=== PATIENT | male | born 1975 | race Two or more races ===

== ENCOUNTER → 2024-08-17 | Outpatient (BNVA) | payer MEDICAID, SELFPAY | END | disposition home or self-care (01) | PROVIDERS: PCP Nurse Practitioner Family; Referring Provider Nurse Practitioner Family; Visit Provider Nurse Practitioner Family | DX: Z00.01 Encounter for general adult medical examination with abnormal findings (principal); Z01.812 Encounter for preprocedural laboratory examination; E11.9 Type 2 diabetes mellitus without complications; G89.29 Other chronic pain; M54.16 Radiculopathy, lumbar region; E78.2 Mixed hyperlipidemia; E66.9 Obesity, unspecified; Z68.30 Body mass index [BMI] 30.0-30.9, adult; Z01.810 Encounter for preprocedural cardiovascular examination; Z71.2 Person consulting for explanation of examination or test findings | CPT/HCPCS: 99215 ==

== ENCOUNTER → 2024-09-09 | Outpatient (BNVA) | payer MEDICAID, SELFPAY | END | disposition home or self-care (01) | PROVIDERS: PCP Nurse Practitioner Family; Referring Provider Nurse Practitioner Family; Visit Provider Nurse Practitioner Family | DX: K58.9 Irritable bowel syndrome, unspecified (principal) | CPT/HCPCS: 99214 ==

== ENCOUNTER → 2024-09-17 | Outpatient (BNVA) | payer MEDICAID, SELFPAY | END | disposition home or self-care (01) | PROVIDERS: PCP Nurse Practitioner Family; Referring Provider Nurse Practitioner Family; Visit Provider Nurse Practitioner Family | DX: K58.9 Irritable bowel syndrome, unspecified (principal); Z71.2 Person consulting for explanation of examination or test findings | CPT/HCPCS: 99214 ==

== ENCOUNTER → 2024-10-19 | Outpatient (BNVA) | payer MEDICAID, SELFPAY | END | disposition home or self-care (01) | PROVIDERS: PCP Nurse Practitioner Family; Referring Provider Nurse Practitioner Family; Visit Provider Nurse Practitioner Family | DX: J32.4 Chronic pansinusitis (principal) | CPT/HCPCS: 99215 ==

== ENCOUNTER 2024-10-22 04:18 | Emergency (ER) | payer MEDICAID, SELFPAY ==
[2024-10-22 04:18] VITALS: BMI 28.5
[2024-10-22 04:28] VITALS: BP 145/93; PULSE 94; RESP 18; TEMP 37.1; O2SAT 99
--- NOTE | 2024-10-22 05:31 | PD.EDABDPN ---
ED Abdominal Pain RME/HPI General Chief Complaint: Abdominal Pain Stated complaint: RUQ PAIN X 1 MON Time seen by provider: 10/22/24 04:49 Arrival date/time: 10/22/24 04:18 48M with history of HTN and psych presents to ED with 1 month of RUQ pain. Patient is tired of waiting for outpatient referral and ordered US and wanted to check in because his was here as well. Limitations: no limitations Related Data Previous Rx's ?Medication ?Instructions ?Recorded lidocaine 5 % topical patch See Rx Instructions topical 05/06/24 .COMPLEX #30 ea ergocalciferol (vitamin D2) 1,250 50,000 unit PO QWEEK 12 weeks #12 08/17/24 mcg (50,000 unit) capsule caps lisinopril 5 mg tablet 5 mg PO QDAY #90 tabs 08/17/24 sertraline 50 mg tablet 50 mg PO QDAY #90 tabs 08/17/24 Allergies Allergy/AdvReac Type Severity Reaction Status Date / Time egg Allergy Mild Diarrhea Verified 10/22/24 04:20 piperacillin (From Zosyn) Allergy Mild Redness of Verified 10/22/24 04:20 Skin tazobactam (From Zosyn) Allergy Mild Redness of Verified 10/22/24 04:20 Skin Review of Systems Review of Systems Systems Reviewed: All systems reviewed, normal except as documented Constitutional Constitutional: Reports system reviewed and no additional complaints, except as documented, Denies fever(s) and Denies headache(s) ENT Ears, Nose, Mouth, and Throat: Denies disequilibrium and Denies headache(s) Cardiovascular Cardiovascular: Reports system reviewed and no additional complaints, except as documented, Denies chest pain and Denies dyspnea Respiratory Respiratory: Reports system reviewed and no additional complaints, except as documented, Denies cough and Denies dyspnea Gastrointestinal Gastrointestinal: Reports system reviewed and no additional complaints, except as documented, Reports as per HPI, Reports abdominal pain, Denies nausea and Denies vomiting Neurologic Neurologic: Reports system reviewed and no additional complaints, except as documented, Denies confusion, Denies disequilibrium and Denies headache(s) Psychiatric Psychiatric: Denies confusion Past Medical History Past Medical History NEUROLOGIC: Negative Neurological Disorders or Seizures CARDIAC: Positive Cardiac Disorders, Hypercholesterolemia and Hypertension; Negative Congestive Heart Failure RESPIRATORY: Negative Chronic Obstructive Pulmonary Disease (COPD) GASTROINTESTINAL: Negative Gastrointestinal Disorders GENITOURINARY: Negative Genitourinary Disorders or Renal Disease REPRODUCTIVE: Negative Breast Cancer MUSCULOSKELETAL: Negative Musculoskeletal Disorders ENDOCRINE: Negative Endocrine Disorders, Diabetes Mellitus Type 1 or Diabetes Mellitus Type 2 HEMATOLOGIC: Negative Blood Disorders PSYCHO/SOCIAL: Positive Depression OTHER HISTORY: Negative Autoimmune Disease, MRSA, Clostridium Difficile or Breast Cancer Family History FAMILY HISTORY: Negative Family Cardiac Disorders Surgical History SURGICAL: Negative Cardiac Surgery, Endocrine Surgery, Ear Surgery, Abdominal Surgery, Nephrectomy, Joint Replacement, Neurologic Surgery or Mastectomy Social History SMOKING STATUS: Never smoker SECOND HAND EXPOSURE: No ED Exam General Limitations: Present no limitations General appearance: Present alert and in no apparent distress Head Head exam: Present atraumatic Eye Eye exam: Present normal appearance, PERRL and EOMI ENT ENT exam: Present normal exam, normal oropharynx and mucous membranes moist Neck Neck exam: Present normal inspection, full ROM and trachea midline Chest Chest inspection: Present normal inspection and symmetric chest wall rise Respiratory Respiratory exam: Present normal lung sounds bilaterally Cardiovascular Cardiovascular exam: Present regular rate, normal rhythm and normal heart sounds Abdominal Exam Abdominal exam: Present soft and normal bowel sounds Extremities Exam Extremities exam: Present normal inspection and full ROM Back Exam Back exam: Present normal inspection and full ROM Neurological Exam Neurological exam: Present alert, oriented X3 and CN II-XII intact Psychiatric Psychiatric exam: Present normal affect and normal mood Skin Skin exam: Present warm, dry, intact and normal color Course Quality Measures none Vital Signs Vital signs: Vital Signs Temperature 98.8 F 10/22/24 04:28 Pulse Rate 94 10/22/24 04:28 Respiratory Rate 18 10/22/24 04:28 Blood Pressure 145/93 H 10/22/24 04:28 Pulse Oximetry (%) 99 10/22/24 04:28 Oxygen Delivery Method Room Air 10/22/24 04:28 O2 at 99% on RA and WNLs Abdominal Pain MDM MDM Narrative MDM Narrative:: 48M with history of HTN and psych presents to ED with 1 month of RUQ pain. Patient is tired of waiting for outpatient referral and ordered US and wanted to check in because his was here as well. Physical exam reveals no ab tenderness. Patient is afebrile, calm, and alert. Review of outpatient notes reveals patient also has IBS and recent normal colonoscopy. [employer] given. Patient data External records reviewed:: [facility] previous records Clinical information provided by:: patient Social determinants that could affect healthcare access:: mental health Patient has the following chronic illnesses:: HTN and psych How is presenting disease/condition affected by chronic disease/condition?: exacerbated by Evaluation data The following diagnostics were reviewed and interpreted by me:: other (specify) (none) Lab and/or radiology exams considered but not ordered:: not ordered Interpretation Summary: n/a Medications / Prescriptions Medications or Prescriptions considered but not ordered:: not ordered Medication administrations:: n/a Consultations Consultation(s) initiated? (list below): No Diagnosis Differential diagnosis abdominal pain: abdominal pain, acute appendicitis, calculus of kidney, constipation, diverticulitis, gastroenteritis, pancreatitis, small bowel obstruction and other (biliary disease, chronic ab pain) Most likely diagnosis given after review of the tests above:: chronic ab pain Admission Indicated Admission indicated?: not indicated Admission Request Was there a request for admission?: No Disposition Plan Disposition Plan: Discharge Discharge Attestation Discharge Attestation: The patient and all family members were given an opportunity to ask questions and understood the discharge instructions. Discharge instructions specifically effects, indications for sooner follow up or return to the emergency department, and the expected course of current diagnosis. Patient condition: Stable Discharge Plan Plan Patient Disposition: HOME (Self Care) Disposition Comment: Stable Prescriptions/Referrals Prescriptions/Med Rec: No Action lisinopril 5 mg tablet 5 mg PO QDAY Qty: 90 1RF Rx Instructions: Directions in Italian sertraline 50 mg tablet 50 mg PO QDAY Qty: 90 1RF Rx Instructions: Directions in Italian ergocalciferol (vitamin D2) 1,250 mcg (50,000 unit) capsule 50,000 unit PO QWEEK 84 Days Qty: 12 0RF lidocaine 5 % adhesive patch,medicated See Rx Instructions topical .COMPLEX Qty: 30 2RF Rx Instructions: leave on most painful area for up to 12 hrs topical Problem List Clinical Impression: Chronic abdominal pain Patient/Caregiver Discharge Instructions Education Materials: ED Pain Management: Chronic Additional Instructions: Please follow-up with PCP within 24-48 hours and return immediately if symptoms worsen. Need to wait for specialist. Print Language: Italian Stand Alone Forms: Patient Portal Info Letter PA/LAUREANO Supervising Physician [place]/LAUREANO Supervising Physician: Dr. Thapa
== END 2024-10-22 05:22 | disposition home or self-care (01) ==
LOC: SERX 05:04
PROVIDERS: Emergency Provider Emergency Medicine; PCP Nurse Practitioner Family
DX: R10.11 Right upper quadrant pain (principal); G89.29 Other chronic pain
CPT/HCPCS: 99281

== ENCOUNTER → 2024-12-03 | Outpatient (BNVA) | payer MEDICAID, SELFPAY | END | disposition home or self-care (01) | PROVIDERS: PCP Nurse Practitioner Family; Referring Provider Nurse Practitioner Family; Visit Provider Nurse Practitioner Family | DX: R10.9 Unspecified abdominal pain (principal) | CPT/HCPCS: 99214 ==

== ENCOUNTER → 2025-01-05 | Outpatient (CLI) | payer MEDICAID, SELFPAY ==
--- NOTE | 2025-01-05 09:30 | XR_ITS ---
Examination: Abdomen sonogram, complete Date and time of exam: January 05, 2025 0928 hours INDICATIONS: Right upper abdominal pain left upper abdominal pain with acid reflux beginning 4 months ago. Technique: Multiple real-time grayscale transabdominal sonographic images of the abdomen have been obtained. Findings: Normal gallbladder Normal common bile duct 0.4 cm Pancreatic head 2.9 cm Aorta not enlarged Liver 15.9 cm fatty infiltration Normal hepatopedal portal venous flow Patent IVC Right kidney 12.2 cm cortex 2.1 cm Left kidney 11.0 cm cortex 2.1 cm Mild bilateral renal parenchymal scar formation Spleen 11.7 cm IMPRESSION: Normal gallbladder Normal common bile duct Fatty liver
== END | disposition home or self-care (01) ==
PROVIDERS: PCP Nurse Practitioner Family; Referring Provider Nurse Practitioner Family; Visit Provider Nurse Practitioner Family
DX: K76.0 Fatty (change of) liver, not elsewhere classified (principal)
CPT/HCPCS: 76700

== ENCOUNTER → 2025-01-12 | Outpatient (BNVA) | payer MEDICAID, SELFPAY | END | disposition home or self-care (01) | PROVIDERS: PCP Nurse Practitioner Family; Referring Provider Nurse Practitioner Family; Visit Provider Nurse Practitioner Family | DX: K58.9 Irritable bowel syndrome, unspecified (principal); Z71.2 Person consulting for explanation of examination or test findings; R10.9 Unspecified abdominal pain; K76.0 Fatty (change of) liver, not elsewhere classified | CPT/HCPCS: 99213 ==

== ENCOUNTER 2025-01-20 02:50 | Emergency (ER) | payer MEDICAID, SELFPAY ==
[2025-01-20 03:29] VITALS: BP 141/85; PULSE 70; RESP 18; TEMP 36.8; O2SAT 98
--- NOTE | 2025-01-20 03:37 | EDNOTE_ITS ---
ED Abdominal Pain RME/HPI General Chief Complaint: Abdominal Pain Stated complaint: RIGHT UPPER ABD PAIN Time seen by provider: 01/20/25 03:29 Arrival date/time: 01/20/25 02:50 49M with history of psych and chronic ab pain presents to ED with several days of intermittent RUQ pain and N/V, particularly when eating. Patient had normal RUQ US earlier this month. Patient had recently unremarkable CT, EGD, and colonoscopy. Patient has pending repeat GI referral. Patient has not taken anything for the pain. Limitations: no limitations Related Data Previous Rx's ?Medication ?Instructions ?Recorded lidocaine 5 % topical patch See Rx Instructions topica l 05/06/24 .COMPLEX #30 ea sertraline 50 mg tablet 50 mg PO QDAY #90 tabs 08/17 lisinopril 5 mg tablet 5 mg PO QDAY #90 tabs naproxen 500 mg tablet 500 mg PO BID PRN pain #30 t abs 01/20/25 ondansetron 4 mg disintegrating 4 mg PO Q8H PRN nausea and 01/20/25 tablet vomiting #20 tabs Allergies Allergy/AdvReac Type Severity Reaction Status Date / Time egg Allergy Mild Diarrhea Verified 01/20/25 02:53 piperacillin (From Zosyn) Allergy Mild Redness of Verified 01/20/25 02:53 Skin tazobactam (From Zosyn) Allergy Mild Redness of Verified 01/20/25 02:53 Skin Review of Systems Review of Systems Systems Reviewed: All systems reviewed, normal except as documented Constitutional Constitutional: Reports system reviewed and no additional complaints, except as documented, Denies fever(s) and Denies headache(s) ENT Ears, Nose, Mouth, and Throat: Denies disequilibrium and Denies headache(s) Cardiovascular Cardiovascular: Reports system reviewed and no additional complaints, except as documented, Denies chest pain and Denies dyspnea Respiratory Respiratory: Reports system reviewed and no additional complaints, except as documented, Denies cough and Denies dyspnea Gastrointestinal Gastrointestinal: Reports system reviewed and no additional complaints, except as documented, Reports as per HPI, Reports abdominal pain, Reports nausea and Reports vomiting Neurologic Neurologic: Reports system reviewed and no additional complaints, except as documented, Denies confusion, Denies disequilibrium and Denies headache(s) Psychiatric Psychiatric: Denies confusion Past Medical History Past Medical History NEUROLOGIC: Negative Neurological Disorders or Seizures CARDIAC: Positive Cardiac Disorders, Hypercholesterolemia and Hypertension; Negative Congestive Heart Failure RESPIRATORY: Negative Chronic Obstructive Pulmonary Disease (COPD) GASTROINTESTINAL: Negative Gastrointestinal Disorders GENITOURINARY: Negative Genitourinary Disorders or Renal Disease REPRODUCTIVE: Negative Breast Cancer MUSCULOSKELETAL: Negative Musculoskeletal Disorders ENDOCRINE: Negative Endocrine Disorders, Diabetes Mellitus Type 1 or Diabetes Mellitus Type 2 HEMATOLOGIC: Negative Blood Disorders PSYCHO/SOCIAL: Positive Depression OTHER HISTORY: Negative Autoimmune Disease, MRSA, Clostridium Difficile or Breast Cancer Family History FAMILY HISTORY: Negative Family Cardiac Disorders Surgical History SURGICAL: Negative Cardiac Surgery, Endocrine Surgery, Ear Surgery, Abdominal Surgery, Nephrectomy, Joint Replacement, Neurologic Surgery or Mastectomy Social History SMOKING STATUS: Never smoker SECOND HAND EXPOSURE: No ED Exam General Limitations: Present no limitations General appearance: Present alert and in no apparent distress Head Head exam: Present atraumatic Eye Eye exam: Present normal appearance, PERRL and EOMI ENT ENT exam: Present normal exam, normal oropharynx and mucous membranes moist Neck Neck exam: Present normal inspection, full ROM and trachea midline Chest Chest inspection: Present normal inspection and symmetric chest wall rise Respiratory Respiratory exam: Present normal lung sounds bilaterally Cardiovascular Cardiovascular exam: Present regular rate, normal rhythm and normal heart sounds Abdominal Exam Abdominal exam: Present soft and normal bowel sounds Extremities Exam Extremities exam: Present normal inspection and full ROM Back Exam Back exam: Present normal inspection and full ROM Neurological Exam Neurological exam: Present alert, oriented X3 and CN II-XII intact Psychiatric Psychiatric exam: Present normal affect and normal mood Skin Skin exam: Present warm, dry, intact and normal color Course Quality Measures none Orders Category Date Time Status Naproxen [Naprosyn] Med 01/20/25 03:29 Discontinued 500 mg PO X1 ONE Ondansetron Odt [Zofran Odt] Med 01/20/25 03:29 Discontinued 4 mg PO X1 ONE Vital Signs Vital signs: Vital Signs Temperature 98.3 F 01/20/25 03:29 Pulse Rate 70 01/20/25 03:29 Respiratory Rate 18 01/20/25 03:29 Blood Pressure 141/85 H 01/20/25 03:29 Pulse Oximetry (%) 98 01/20/25 03:29 Oxygen Delivery Method Room Air 01/20/25 03:29 O2 at 98% on RA and WNLs Abdominal Pain MDM MDM Narrative MDM Narrative:: 49M with history of psych and chronic ab pain presents to ED with several days of intermittent RUQ pain and N/V, particularly when eating. Patient had normal RUQ US earlier this month. Patient had recently unremarkable CT, EGD, and colonoscopy. Patient has pending repeat GI referral. Patient has not taken anything for the pain. Physical exam reveals no ab tenderness. Patient is afebrile, alert, but anxious. Meds and psychosocial rehabilitation counselor given. Patient data External records reviewed:: [facility] previous records Clinical information provided by:: patient Social determinants that could affect healthcare access:: mental health Patient has the following chronic illnesses:: psych How is presenting disease/condition affected by chronic disease/condition?: exacerbated by Evaluation data The following diagnostics were reviewed and interpreted by me:: other (specify) (none) Lab and/or radiology exams considered but not ordered:: not ordered Interpretation Summary: n/a Medications / Prescriptions Medications or Prescriptions considered but not ordered:: ordered Medication administrations:: Medication Administration History Discontinued Medications Naproxen (Naproxen 250 Mg Tablet) 500 mg PO X1 ONE Stop: 01/20/25 03:30 Ondansetron HCl (Ondansetron Odt 4 Mg Tabrap) 4 mg PO X1 ONE; Protocol Stop: 01/20/25 03:30 above Consultations Consultation(s) initiated? (list below): No Diagnosis Differential diagnosis abdominal pain: abdominal pain, acute appendicitis, calculus of kidney, constipation, diverticulitis, endometriosis, gastroenteritis, pancreatitis, small bowel obstruction and other (chronic ab pain) Most likely diagnosis given after review of the tests above:: chronic ab pain Admission Indicated Admission indicated?: not indicated Admission Request Was there a request for admission?: No Disposition Plan Disposition Plan: Discharge Discharge Attestation Discharge Attestation: The patient and all family members were given an opportunity to ask questions and understood the discharge instructions. Discharge instructions specifically effects, indications for sooner follow up or return to the emergency department, and the expected course of current diagnosis. Patient condition: Stable Discharge Plan Plan Patient Disposition: HOME (Self Care) Discharge Disposition comment: Stable Prescriptions/Referrals Prescriptions/Med Rec: New naproxen 500 mg tablet 500 mg PO BID PRN (Reason: pain) Qty: 30 0RF ondansetron 4 mg tablet,disintegrating 4 mg PO Q8H PRN (Reason: nausea and vomiting) Qty: 20 0RF No Action sertraline 50 mg tablet 50 mg PO QDAY Qty: 90 1RF Rx Instructions: Directions in [place] lidocaine 5 % adhesive patch,medicated See Rx Instructions topical .COMPLEX Qty: 30 2RF Rx Instructions: leave on most painful area for up to 12 hrs topical lisinopril 5 mg tablet 5 mg PO QDAY Qty: 90 0RF Rx Instructions: Directions in [place]an Problem List Clinical Impression: Chronic abdominal pain Patient/Caregiver Discharge Instructions Education Materials: Abdominal Pain, ED Chronic Pain Additional Instructions: Please follow-up with PCP within 24-48 hours and return immediately if symptoms worsen. Print Language: [place]an Stand Alone Forms: Patient Portal Info Letter PA/DIRECTOR OF [employer]CH[employer] Supervising Physician PA/DIRECTOR OF [employer]LINE [employer]CH[employer]ISING Supervising Physician: Dr. Fallon
[2025-01-20] MEDS: ONDANSETRON ODT 4 MG TABRAP PO (03:56)
[2025-01-20] MEDS: NAPROXEN 250 MG TABLET 500 MG PO (03:56)
[2025-01-20 04:17] VITALS: RESP 18
== END 2025-01-20 04:18 | disposition home or self-care (01) ==
LOC: SERX 03:54
PROVIDERS: Emergency Provider Emergency Medicine; PCP Nurse Practitioner Family
DX: R10.11 Right upper quadrant pain (principal); G89.29 Other chronic pain
CPT/HCPCS: 99282; Q0162; A9270

== ENCOUNTER → 2025-02-01 | Outpatient (BNVA) | payer MEDICAID, SELFPAY | END | disposition home or self-care (01) | PROVIDERS: PCP Nurse Practitioner Family; Referring Provider Nurse Practitioner Family; Visit Provider Nurse Practitioner Family | DX: G25.81 Restless legs syndrome (principal); R14.0 Abdominal distension (gaseous) | CPT/HCPCS: 99213 ==

== ENCOUNTER 2025-02-02 09:55 | Emergency (ER) | payer MEDICAID, SELFPAY ==
[2025-02-02 10:09] VITALS: BP 170/104; PULSE 82; RESP 18; TEMP 36.8; O2SAT 97; BMI 31.4
--- NOTE | 2025-02-02 10:12 | XR_ITS ---
Examination: CT abdomen and pelvis without contrast. Coronal 3-D reconstructions. Sagittal 2-D reconstructions. Date and time of exam:February 02, 2025 1019 hours INDICATIONS: Lower abdominal pain with constipation beginning 2 days ago CTDI: vol (mGy): 7.75 DLP: (mGycm): 527 Technique: Axial images of the abdomen have been obtained, 3 mm slice thickness Intravenous contrast material has not been administered. Low dose protocols were performed. One or more of the following dose reduction techniques were used; automated exposure control, adjustment of the mA and/or KV according to patient size, use of iterative reconstruction technique. Findings: No focal liver or splenic lesions No gallstones No pancreatic or adrenal mass No renal or ureteral calculi, no hydronephrosis Aorta normal size Normal appendix No bowel obstruction No diverticulitis No significant prostatic enlargement Contracted urinary bladder with urinary bladder wall thickening up to 9 mm The osseous structures are intact IMPRESSION: No renal or ureteral calculi, no hydronephrosis Normal appendix Contracted urinary bladder with urinary bladder wall thickening up to 9 mm, consider cystitis No bowel obstruction
--- NOTE | 2025-02-02 10:13 | EDNOTE_ITS ---
<Statement entered by Irena Leong MD - 02/12/25 19:39> As co-signing physician, I was present and available for consult prn. I concur with the plan and care as documented by the midlevel provider. ED Abdominal Pain RME/HPI General Chief Complaint: Abdominal Pain Stated complaint: ABD. PAIN, CONSTIPATED X4D Time seen by provider: 02/02/25 10:00 Arrival date/time: 02/02/25 09:55 49-year-old male with no known medical history presents to the emergency room with a chief complaint of 8 out of 10 abdominal pain, distention, constipation x 4 days Source: patient Mode of arrival: ambulatory Limitations: no limitations Related Data Previous Rx's ?Medication ?Instructions ?Recorded lidocaine 5 % topical patch See Rx Instructions topica l 05/06/24 .COMPLEX #30 ea sertraline 50 mg tablet 50 mg PO QDAY #90 tabs 08/17 lisinopril 5 mg tablet 5 mg PO QDAY #90 tabs naproxen 500 mg tablet 500 mg PO BID PRN pain #30 t abs 01/20/25 ondansetron 4 mg disintegrating 4 mg PO Q8H PRN nausea and 01/20/25 tablet vomiting #20 tabs gabapentin 300 mg capsule 300 mg PO QHS 30 days #30 ca ps 02/01/25 simethicone 250 mg capsule (Gas 250 mg PO BID PRN abdo mikie 02/01/25 Relief (simethicone)) distention 30 days #60 caps docusate sodium 100 mg capsule 100 mg PO QDAY #14 caps 02/02/25 (Colace) lactulose 10 gram/15 mL oral 20 g (30 mL) PO QDAY PRN 02/02/25 solution constipation #237 mL Allergies Allergy/AdvReac Type Severity Reaction Status Date / Time egg Allergy Mild Diarrhea Verified 02/02/25 09:56 piperacillin (From Zosyn) Allergy Mild Redness of Verified 02/02/25 09:56 Skin tazobactam (From Zosyn) Allergy Mild Redness of Verified 02/02/25 09:56 Skin Review of Systems Review of Systems Systems Reviewed: All systems reviewed, normal except as documented Constitutional Constitutional: Reports system reviewed and no additional complaints, except as documented, Denies fatigue, Denies fever(s), Denies headache(s) and Denies weakness Eyes Eyes: Reports system reviewed and no additional complaints, except as documented, Denies blurry vision and Denies change in vision ENT Ears, Nose, Mouth, and Throat: Reports system reviewed and no additional complaints, except as documented, Denies otalgia, Denies headache(s), Denies nasal congestion, Denies throat swelling and Denies vertigo Cardiovascular Cardiovascular: Reports system reviewed and no additional complaints, except as documented, Denies chest pain, Denies dyspnea and Denies dyspnea on exertion Respiratory Respiratory: Reports system reviewed and no additional complaints, except as documented, Denies chest congestion, Denies cough, Denies dyspnea, Denies dyspnea on exertion and Denies wheezing Gastrointestinal Gastrointestinal: Reports system reviewed and no additional complaints, except as documented, Denies abdominal pain, Denies cramping, Denies nausea and Denies vomiting Genitourinary Genitourinary: Reports system reviewed and no additional complaints, except as documented, Denies dysuria and Denies hematuria Musculoskeletal Musculoskeletal: Reports system reviewed and no additional complaints, except as documented and Denies back pain Integumentary/Breasts Skin/Breast: Reports system reviewed and no additional complaints, except as documented and Denies wounds Neurologic Neurologic: Reports system reviewed and no additional complaints, except as documented, Denies confusion, Denies headache(s), Denies lack of coordination, Denies vertigo and Denies weakness Psychiatric Psychiatric: Reports system reviewed and no additional complaints, except as documented, Denies anxiety, Denies confusion, Denies depression, Denies paranoia, Denies suicidal ideation and Denies tactile hallucinations Endocrine Endocrine: Reports system reviewed and no additional complaints, except as documented and Denies fatigue Hematologic/Lymphatic Hematologic/Lymphatic: Reports system reviewed and no additional complaints, except as documented and Denies lymphadenopathy Allergic/Immunologic Allergic/Immunologic: Reports system reviewed and no additional complaints, except as documented, Denies throat swelling, Denies urticaria and Denies wheezing ED Exam General Limitations: Present no limitations General appearance: Present alert and in no apparent distress Head Head exam: Present atraumatic Eye Eye exam: Present normal appearance, PERRL and EOMI ENT ENT exam: Present normal exam, normal oropharynx and mucous membranes moist Neck Neck exam: Present normal inspection, full ROM and trachea midline Chest Chest inspection: Present normal inspection and symmetric chest wall rise Respiratory Respiratory exam: Present normal lung sounds bilaterally Cardiovascular Cardiovascular exam: Present regular rate, normal rhythm and normal heart sounds Abdominal Exam Abdominal exam: Present soft, tenderness and normal bowel sounds Abdominal tenderness: Present epigastrium, suprapubic and mild; Absent RUQ or RLQ Extremities Exam Extremities exam: Present normal inspection and full ROM Back Exam Back exam: Present normal inspection and full ROM Neurological Exam Neurological exam: Present alert, oriented X3 and CN II-XII intact Psychiatric Psychiatric exam: Present normal affect and normal mood Skin Skin exam: Present warm, dry, intact and normal color Course Quality Measures none Orders Category Date Time Status CT abdomen pelvis wo con Stat Exams 02/02/25 10:12 Completed CBC Stat Lab 02/02/25 10:52 Completed CMP [Comprehensive Metabolic Panel] Stat Lab 02/02/25 10:52 Completed Lipase Stat Lab 02/02/25 10:52 Completed UA [Urinalysis] Stat Lab 02/02/25 11:10 Completed Urine Culture Stat Lab 02/02/25 11:10 Received mg Hyd/Al Hyd/Caity Susp [Maalox Susp] Med 02/02/25 10:12 Discontinued 30 ml PO X1 ONE Vital Signs Vital signs: Vital Signs Temperature 98.2 F 02/02/25 10:09 Pulse Rate 82 02/02/25 10:09 Respiratory Rate 18 02/02/25 10:09 Blood Pressure 170/104 H 02/02/25 10:09 Pulse Oximetry (%) 97 02/02/25 10:09 Oxygen Delivery Method Room Air 02/02/25 10:09 Abdominal Pain MDM MDM Narrative MDM Narrative:: 49-year-old male with no known medical history presents to the emergency room with a chief complaint of 8 out of 10 abdominal pain, distention, constipation x 4 days Patient is hemodynamically stable and in no apparent distress Physical examination shows a tender epigastric abdomen. There is no tenderness of the right lower quadrant or right upper quadrant. There is no tenderness to McBurney's point and there is a negative Decker sign CT of the abdomen pelvis was negative for any acute findings. CBC CMP and urinalysis were all within normal limits Patient was discharged and educated to follow-up with primary care provider in the next 24 to 48 hours and return to the emergency room for any evidence of worsening signs or symptoms Patient data External records reviewed:: [facility] previous records Clinical information provided by:: patient Social determinants that could affect healthcare access:: none Patient has the following chronic illnesses:: No chronic illness How is presenting disease/condition affected by chronic disease/condition?: no chronic disease Evaluation data The following diagnostics were reviewed and interpreted by me:: lab results and radiology exam(s) Lab and/or radiology exams considered but not ordered:: Labs and radiology exams considered and ordered Interpretation Summary: CT abdomen and pelvis-IMPRESSION: No renal or ureteral calculi, no hydronephrosis Normal appendix Contracted urinary bladder with urinary bladder wall thickening up to 9 mm, consider cystitis No bowel obstruction Medications / Prescriptions Medications or Prescriptions considered but not ordered:: Medication given Medication administrations:: Medication Administration History Discontinued Medications Al Hydrox/Mg Hydrox/Simethicone (Mg Hyd/Al Hyd/Caity (Maalox Reg) Susp 30 Ml Udc) 30 ml PO X1 ONE Stop: 02/02/25 10:13 Last Admin: 02/02/25 10:41 Dose: 30 ml Documented By: MF Medication given Consultations Consultation(s) initiated? (list below): No Diagnosis Differential diagnosis abdominal pain: abdominal pain, acute appendicitis, constipation, gastroenteritis and pancreatitis Most likely diagnosis given after review of the tests above:: Constipation Admission Indicated Admission indicated?: not indicated Admission Request Was there a request for admission?: No Disposition Plan Disposition Plan: Discharge Discharge Attestation Discharge Attestation: The patient and all family members were given an opportunity to ask questions and understood the discharge instructions. Discharge instructions specifically effects, indications for sooner follow up or return to the emergency department, and the expected course of current diagnosis. Patient condition: Stable Discharge Plan Plan Patient Disposition: HOME (Self Care) Discharge Disposition comment: Stable Prescriptions/Referrals Prescriptions/Med Rec: New docusate sodium [Colace] 100 mg capsule 100 mg PO QDAY Qty: 14 0RF lactulose 10 gram/15 mL solution 20 g PO QDAY PRN (Reason: constipation) Qty: 237 0RF No Action sertraline 50 mg tablet 50 mg PO QDAY Qty: 90 1RF Rx Instructions: Directions in [place] lidocaine 5 % adhesive patch,medicated See Rx Instructions topical .COMPLEX Qty: 30 2RF Rx Instructions: leave on most painful area for up to 12 hrs topical Gas Relief (simethicone) 250 mg capsule 250 mg PO BID PRN (Reason: abdominal distention) 30 Days Qty: 60 0RF gabapentin 300 mg capsule 300 mg PO QHS 30 Days Qty: 30 0RF lisinopril 5 mg tablet 5 mg PO QDAY Qty: 90 0RF Rx Instructions: Directions in [place] naproxen 500 mg tablet 500 mg PO BID PRN (Reason: pain) Qty: 30 0RF ondansetron 4 mg tablet,disintegrating 4 mg PO Q8H PRN (Reason: nausea and vomiting) Qty: 20 0RF Referrals: Gamal C WHIZZER OPERATOR,Bette Lay WHIZZER OPERATOR [Primary Care Provider] - In 1 week Problem List Clinical Impression: Constipation Patient/Caregiver Discharge Instructions Education Materials: Eating a High-Fiber Diet, ED Constipation (Adult) Additional Instructions: Por favor, consulte con barber m?dico de cabecera en las pr?ximas 24 a 48 horas. Se realiz? mayito tomograf?a computarizada de abdomen y pelvis y fue negativa para cualquier hallazgo fabiana. Si hay alguna evidencia de empeoramiento de los signos o s?ntomas, regrese a la angella de emergencias inmediatamente. Print Language: [place] Stand Alone Forms: Gricelda Award Info., Patient Portal Info Letter PA/OFFICE MACHINE INSTALLER Supervising Physician PA/OFFICE MACHINE INSTALLER Supervising Physician: Dr. LEONG
[2025-02-02] MEDS: MG HYD/AL HYD/SIME (Maalox Reg) SUSP 30 ML UDC PO (10:41)
[2025-02-02 11:13] LABS: Basophils # (Auto) 0.0 Thou/mm3 (0.0-0.2); Basophils % (Auto) 1 % (0-2.5); Eosinophils # (Auto) 0.0 Thou/mm3 (0.0-0.5); Eosinophils % (Auto) 0 % (0-10); Hematocrit 46.3 % (41.0-53.0); Hemoglobin 15.9 g/dL (13.5-16.0); Immature Granulocytes Auto 0.02 Thou/mm3 (0.00-0.00); Lymphocytes # (Auto) 1.7 Thou/mm3 (1.0-4.8); Lymphocytes % (Auto) 25 % (10-50); Mean Corpuscular HGB Conc 34.3 g/dl (31.0-37.0); Mean Corpuscular Hemoglobin 28.6 pg (25.0-35.0); Mean Corpuscular Volume 83 fL (80-100); Monocytes # (Auto) 0.3 Thou/mm3 (0.0-0.8); Monocytes % (Auto) 5 % (0-12); Neutrophils # (Auto) 4.7 Thou/mm3 (1.8-7.7); Neutrophils % (Auto) 69 % (37-80); Nucleated Red Blood Cell # 0.00 Thou/mm3 (0.00-0.00); Nucleated Red Blood Cell % 0 /100 WBC (0); Platelet Count 182 Thou/mm3 (140-440); RDW Standard Deviation 38.2 fL (35.1-43.9); Red Blood Count 5.55 Miln/mm3 (4.50-5.90); White Blood Count 6.8 Thou/mm3 (3.8-10.6)
[2025-02-02 11:30] LABS: Alanine Aminotransferase 26 U/L (10-49); Albumin, Serum 4.8 gm/dL (3.5-5.0); Albumin/Globulin Ratio 1.7 (1.2-2.2); Alkaline Phosphatase 80 U/L (46-116); Anion Gap 5 (7-16); Aspartate Amino Transferase 24 U/L (0-34); BUN/Creatinine Ratio 11 Ratio (12-20); Bilirubin,Total 1.0 mg/dL (0.3-1.2); Blood Urea Nitrogen 11 mg/dL (9-23); Calcium 9.8 mg/dL (8.3-10.6); Calcium (Corrected) 9.8 mg/dL (8.5-10.1); Carbon Dioxide 26.6 mMol/L (20.0-31.0); Chloride 106 mMol/L (98-107); Creatinine (Component) 1.0 mg/dL (0.6-1.3); Estimated Creatinine Clearance 106.3 mL/min (>60); Globulin 2.9 gm/dL (2.3-3.5); Glucose 106 mg/dL (74-106); Lipase 67 U/L (12-53); Osmolality,Calculated 275 (275-295); Potassium 4.1 mMol/L (3.4-5.1); Sodium 138 mMol/L (136-145); Total Protein 7.7 gm/dL (5.7-8.2); eGFR > 60 See Note
[2025-02-02 12:01] LABS: Collection Type, Urine Clean Catch
[2025-02-02 12:31] LABS: Bacteria,Urine Rare; Bilirubin,Urine Negative (Negative); Blood,Urine 1+ (Negative); Clarity,Urine Clear (Clear/Hazy); Color,Urine Lt-Yellow (Lt Yel-Yel); Glucose, Urine Negative (Negative); Ketones,Urine Negative (Negative); Leukocyte Esterase,Urine Negative (Negative); Nitrite,Urine Negative (Negative); PH,Urine 6.5 (5.0-7.0); Protein,Urine Negative (Neg - Trace); RBC,Urine 1 /hpf (0-3); Specific Gravity,Urine 1.025 (1.001-1.035); Squamous Epithelial Cell,Urine < 1 /hpf (0-5); Urobilinogen,Urine Negative mg/dL (0.0-1.0); WBC,Urine < 1 /hpf (0-5)
[2025-02-02 13:49] VITALS: BP 164/92; PULSE 63; RESP 18; TEMP 36.7; O2SAT 99
== END 2025-02-02 13:56 | disposition home or self-care (01) ==
PROVIDERS: Nurse Practitioner Family; Emergency Provider Emergency Medicine; PCP Nurse Practitioner Family
DX: K59.00 Constipation, unspecified (principal); N32.89 Other specified disorders of bladder
CPT/HCPCS: 36415; 74176; 80053; 81001; 83690; 85025; 87086; 99284; A9270

== ENCOUNTER 2025-02-11 07:50 | Day surgery (SDC) | payer MEDICAID, SELFPAY ==
[2025-02-11] VITALS (10 sets, daily range): BP systolic 134–165; BP diastolic 89–102; PULSE 72–82; RESP 12–20; TEMP 36.8–36.9; O2SAT 94–100; BMI 27.8
[2025-02-11] MEDS: RINGERS LACTATED 1000 ML 1,000 ML 125 ML IV (09:23)
[2025-02-11] MEDS: MIDAZOLAM INJ 1 MG/ML VIAL 2 ML (ASD USE ONLY) 2 MG IVP (09:32)
[2025-02-11] MEDS: fentaNYL CIT INJ 50 mCg/ML AMP 2ML (ASD USE ONLY) IVP (09:32)
[2025-02-11] MEDS: SIMETHICONE 40 MG/0.6 ML ORAL SYRINGE PO (09:33)
== END 2025-02-11 10:20 | disposition home or self-care (01) ==
PROVIDERS: PCP Nurse Practitioner Family; Referring Provider Internal Medicine Gastroenterology; Visit Provider Internal Medicine Gastroenterology
PROC: 0DBE8ZX Excision of Large Intestine, Via Natural or Artificial Opening Endoscopic, Diagnostic (ICD-10-PCS; CPT 45380; principal; 2025-02-11 14:30)
DX: K64.8 Other hemorrhoids (principal); E78.00 Pure hypercholesterolemia, unspecified; K63.89 Other specified diseases of intestine
CPT/HCPCS: 45380; J1200; J2250; J3010; J7120; A9270

== ENCOUNTER → 2025-02-22 | Outpatient (BNVA) | payer MEDICAID, SELFPAY | END | disposition home or self-care (01) | PROVIDERS: PCP Nurse Practitioner Family; Referring Provider Nurse Practitioner Family; Visit Provider Nurse Practitioner Family | DX: Z71.2 Person consulting for explanation of examination or test findings (principal); G25.81 Restless legs syndrome; E11.9 Type 2 diabetes mellitus without complications; E78.2 Mixed hyperlipidemia; F32.A Depression, unspecified | CPT/HCPCS: 99213 ==

== ENCOUNTER 2025-05-06 09:15 | Day surgery (SDC) | payer MEDICAID, SELFPAY ==
[2025-05-05 15:07] VITALS: BMI 28.5
[2025-05-06] VITALS (8 sets, daily range): BP systolic 142–161; BP diastolic 87–96; PULSE 63–82; RESP 12–21; TEMP 36.5–36.9; O2SAT 94–100; BMI 28.7
[2025-05-06] MEDS: BENZOCAINE 20% (Hurricaine) SPRAY 1 DOSE TOP (11:24)
[2025-05-06] MEDS: RINGERS LACTATED 500 ML 500 ML 20 ML IV (11:24)
[2025-05-06] MEDS: MIDAZOLAM INJ 1 MG/ML VIAL 2 ML (ASD USE ONLY) 2 MG IVP (11:26)
[2025-05-06] MEDS: fentaNYL CIT INJ 50 mCg/ML AMP 2ML (ASD USE ONLY) IVP (11:26)
== END 2025-05-06 12:25 | disposition home or self-care (01) ==
PROVIDERS: PCP Nurse Practitioner Family; Referring Provider Internal Medicine Gastroenterology; Visit Provider Internal Medicine Gastroenterology
PROC: (CPT 43239; principal; 2025-05-06 13:30)
DX: K21.00 Gastro-esophageal reflux disease with esophagitis, without bleeding (principal); I10 Essential (primary) hypertension; K29.50 Unspecified chronic gastritis without bleeding
CPT/HCPCS: 43239; A4649; J1200; J2250; J3010; J7120; A9270

== ENCOUNTER → 2025-06-02 | Outpatient (BNVA) | payer MEDICAID, SELFPAY | END | disposition home or self-care (01) | PROVIDERS: PCP Nurse Practitioner Family; Referring Provider Nurse Practitioner Family; Visit Provider Nurse Practitioner Family | DX: E78.2 Mixed hyperlipidemia (principal); F34.1 Dysthymic disorder; E11.9 Type 2 diabetes mellitus without complications; Z28.21 Immunization not carried out because of patient refusal; Z71.2 Person consulting for explanation of examination or test findings | CPT/HCPCS: 99213 ==

== ENCOUNTER 2025-06-08 09:00 | Emergency (ER) | payer MEDICAID, SELFPAY ==
[2025-06-08 09:22] VITALS: BP 143/90; PULSE 73; RESP 16; TEMP 36.7; O2SAT 98; BMI 29.0
--- NOTE | 2025-06-08 09:27 | XR_ITS ---
Examination: CT abdomen and pelvis without contrast. Coronal 3-D reconstructions. Sagittal 2-D reconstructions. Date and time of exam: 06/08/2025, 9:55 a.m. INDICATION: Intermittent left-sided abdominal pain COMPARISON: CT abdomen and pelvis 02/02/2025 CTDI: vol (mGy): 7.94 DLP: (mGycm): 541 Technique: Axial images of the abdomen have been obtained, 3 mm slice thickness Intravenous contrast material has not been administered. Low dose protocols were performed. One or more of the following dose reduction techniques were used; automated exposure control, adjustment of the mA and/or KV according to patient size, use of iterative reconstruction technique. Findings: Lack of intravenous contrast limits evaluation of solid organs, vasculature, and lymph nodes. Lower thorax: No pleural effusions. No airspace consolidation. Minimal bibasilar dependent subsegmental atelectases are present. Heart size is within normal limits. Liver: No significant hepatic enlargement. No gross liver mass. Biliary system: No calcified gallstones or findings concerning for acute cholecystitis or biliary ductal obstruction. Spleen: Within normal limits of size. No discrete mass. Pancreas: No contour deforming mass or overt main pancreatic duct dilatation. No evidence for acute inflammation. Adrenal glands: No significant findings. Kidneys: No contour-deforming solid mass. No calculi or hydronephrosis. Bladder: Suboptimal assessment due to under distention but no calculus is seen. Pelvic organs: Mildly enlarged prostate gland. Calcifications of the bilateral vas deferens. Bowel/Peritoneal cavity: Limited assessment without IV and oral contrast as well as segments of underdistention. No contour deforming mass. No obstructive or acute inflammatory changes. The appendix is normal. Minimal proximal sigmoid colon diverticulosis without evidence for acute diverticulitis. Moderate stool is present throughout the colon. No ascites or free air. No concerning peritoneal thickening. Lymph nodes/retroperitoneum: No pathologically enlarged lymph nodes or other masses. No hematoma or other abnormal collections. Vessels: No abdominal aortic aneurysm. Calcific plaque of the mesenteric arteries is present, diffusely involving the SMA, followed by the SARAH and the celiac trunk and its branches, and also involving the bilateral iliac arteries and visualized proximal femoral arteries. Minimal atherosclerosis of the abdominal aorta is present. Abdominal/Pelvic wall: Minimal fat-containing umbilical hernia noted. Musculoskeletal: No recent fractures or tumor suspicious lytic or blastic lesions. IMPRESSION: Negative noncontrast CT for acute abnormality in the abdomen and pelvis. No evidence for acute diverticulitis, colitis appendicitis, enteritis or bowel obstruction. Moderate colonic fecal burden. No evidence for urinary tract calculi or acute obstructive uropathy. Multifocal calcific plaque as described. No abdominal aortic aneurysm. Mild prostatomegaly. Bilateral vas deferens calcifications noted.
--- NOTE | 2025-06-08 09:27 | EKG_ITS ---
[facility] Test Date: 2025-06-08 Pat Name: JANKI LIANG Department: Room: - Gender: Male Customer Service Analyst: : 1975 Requested By: Hernando Harry (OMAR) Order Number: [id number] Reading MD: Hernando Harry (OMAR) Measurements Intervals [place] Rate: 77 P: 32 TN: 152 QRS: 17 QRSD: 96 T: 54 QT: 391 QTc: 444 Interpretive Statements SINUS RHYTHM No previous ECG available for comparison /store/S0/[id number]/ecg/[id number].pdf
--- NOTE | 2025-06-08 09:28 | PD.EDRME ---
Rapid Medical Screening Exam RME Arrival date/time: 06/08/25 09:00 49-year-old male presents to the emergency department today for complaint of left flank pain and left side abdominal pain Chief Complaint: General Adult/Misc Complain Vital signs: Vital Signs Temperature 98.1 F 06/08/25 09:22 Pulse Rate 73 06/08/25 09:22 Respiratory Rate 16 06/08/25 09:22 Blood Pressure 143/90 H 06/08/25 09:22 Pulse Oximetry (%) 98 06/08/25 09:22 Oxygen Delivery Method Room Air 06/08/25 09:22 Vital signs reviewed by provider: Yes Exam: On exam patient well-appearing patient does not appear toxic no acute distress Clinical Impression: Labs and imaging ordered
[2025-06-08 10:09] LABS: Collection Type, Urine Clean Catch; RBC,Urine 0 /hpf (0-3); Squamous Epithelial Cell,Urine 0 /hpf (0-5); WBC,Urine 0 /hpf (0-5)
[2025-06-08 10:27] LABS: Basophils # (Auto) 0.0 Thou/mm3 (0.0-0.2); Basophils % (Auto) 0 % (0-2.5); Eosinophils # (Auto) 0.0 Thou/mm3 (0.0-0.5); Eosinophils % (Auto) 0 % (0-10); Hematocrit 48.5 % (41.0-53.0); Hemoglobin 16.4 g/dL (13.5-16.0); Immature Granulocytes Auto 0.05 Thou/mm3 (0.00-0.00); Lymphocytes # (Auto) 2.4 Thou/mm3 (1.0-4.8); Lymphocytes % (Auto) 34 % (10-50); Mean Corpuscular HGB Conc 33.8 g/dl (31.0-37.0); Mean Corpuscular Hemoglobin 28.2 pg (25.0-35.0); Mean Corpuscular Volume 83 fL (80-100); Monocytes # (Auto) 0.5 Thou/mm3 (0.0-0.8); Monocytes % (Auto) 7 % (0-12); Neutrophils # (Auto) 4.1 Thou/mm3 (1.8-7.7); Neutrophils % (Auto) 58 % (37-80); Nucleated Red Blood Cell # 0.00 Thou/mm3 (0.00-0.00); Nucleated Red Blood Cell % 0 /100 WBC (0); Platelet Count 189 Thou/mm3 (140-440); RDW Standard Deviation 39.6 fL (35.1-43.9); Red Blood Count 5.82 Miln/mm3 (4.50-5.90); White Blood Count 7.0 Thou/mm3 (3.8-10.6)
[2025-06-08 10:29] LABS: Bilirubin,Urine Negative (Negative); Blood,Urine Negative (Negative); Clarity,Urine Clear (Clear/Hazy); Color,Urine Colorless (Lt Yel-Yel); Culture Indicated,Urine Not Indicated; Glucose, Urine Negative (Negative); Ketones,Urine Negative (Negative); Leukocyte Esterase,Urine Negative (Negative); Nitrite,Urine Negative (Negative); PH,Urine 6.5 (5.0-7.0); Protein,Urine Negative (Neg - Trace); Specific Gravity,Urine 1.008 (1.001-1.035); Urobilinogen,Urine Negative mg/dL (0.0-1.0)
[2025-06-08 10:51] LABS: Alanine Aminotransferase 38 U/L (10-49); Albumin, Serum 5.2 gm/dL (3.5-5.0); Albumin/Globulin Ratio 1.8 (1.2-2.2); Alkaline Phosphatase 83 U/L (46-116); Anion Gap 8 (7-16); Aspartate Amino Transferase 30 U/L (0-34); BUN/Creatinine Ratio 8 Ratio (12-20); Bilirubin,Total 1.1 mg/dL (0.3-1.2); Blood Urea Nitrogen 8 mg/dL (9-23); Calcium 10.1 mg/dL (8.3-10.6); Calcium (Corrected) 10.1 mg/dL (8.5-10.1); Carbon Dioxide 28.0 mMol/L (20.0-31.0); Chloride 103 mMol/L (98-107); Creatinine (Component) 1.0 mg/dL (0.6-1.3); Estimated Creatinine Clearance 102.5 mL/min (>60); Globulin 2.9 gm/dL (2.3-3.5); Glucose 103 mg/dL (74-106); Lipase 44 U/L (12-53); Osmolality,Calculated 275 (275-295); Potassium 4.4 mMol/L (3.4-5.1); Sodium 139 mMol/L (136-145); Total Protein 8.1 gm/dL (5.7-8.2); Troponin I < 0.002 ng/mL (0.0-0.045); eGFR > 60 See Note
[2025-06-08 11:55] VITALS: BP 138/89; PULSE 73; RESP 16; TEMP 36.6; O2SAT 98
--- NOTE | 2025-06-08 12:12 | EDNOTE_ITS ---
<Statement entered by Irena Leong MD - 06/09/25 09:36> As co-signing physician, I was present and available for consult prn. I concur with the plan and care as documented by the midlevel provider. ED General RME/HPI General Chief complaint: General Adult/Misc Complain Stated complaint: HIGH BP 158/110, L) BACK PAIN 01/12 Time Seen by Provider: 06/08/25 12:12 Arrival date/time: 06/08/25 09:00 CC: Bloated sensation after eating, bowel movements that started solid and ended up in diarrhea. Loss of appetite HPI ongoing for years, was seen by GI doctor in December and has an a scheduled appointment on June 15, 2025 for results. Patient denies fever chills chest pain shortness of breath difficulty breathing patient is on omeprazole for daily basis. Patient is not in any acute distress. RME / HPI RME / HPI narrative: 06/08/25 09:00 49-year-old male presents to the emergency department today for complaint of left flank pain and left side abdominal pain Exam: On exam patient well-appearing patient does not appear toxic no acute distress Impression: Labs and imaging ordered Related Data Previous Rx's ?Medication ?Instructions ?Recorded atorvastatin 40 mg tablet 40 mg PO QHS 90 days #90 tab s 06/02/25 fenofibrate 54 mg tablet 54 mg PO QDAY #90 tabs 06/02 sertraline 50 mg tablet 50 mg PO QDAY #90 tabs 06/02 Allergies Allergy/AdvReac Type Severity Reaction Status Date / Time egg Allergy Mild Diarrhea Verified 06/08/25 09:06 piperacillin (From Zosyn) Allergy Mild Redness of Verified 06/08/25 09:06 Skin tazobactam (From Zosyn) Allergy Mild Redness of Verified 06/08/25 09:06 Skin Review of Systems Review of Systems Narrative Review of Systems: GEN: No fever, no chills, no weight loss EYES: No discharge, no visual changes, no pain HEENT: No ear pain, no congestion, no sore throat PULM: No shortness of breath, no cough, no congestion CV: No chest pain, no dyspnea on exertion, no palpitations GI: No nausea, no vomiting, no diarrhea, no pain, no constipation : No frequency, no urgency, no dysuria MUSC/SKEL: No joint pain, no back pain SKIN: No rash PSYCH: No hallucinations, no depression HEME/LYMPH: No easy bleeding or bruising tendencies NEURO: No weakness, no headache Past Medical History Past Medical History NEUROLOGIC: Negative Neurological Disorders or Seizures CARDIAC: Positive Cardiac Disorders, Angina, Hypercholesterolemia and Hypertension; Negative Congestive Heart Failure RESPIRATORY: Negative Chronic Obstructive Pulmonary Disease (COPD) GASTROINTESTINAL: Positive Gastrointestinal Disorders (ABDOMINAL PAIN) and Hemorrhoids GENITOURINARY: Negative Genitourinary Disorders or Renal Disease REPRODUCTIVE: Negative Breast Cancer MUSCULOSKELETAL: Negative Musculoskeletal Disorders ENDOCRINE: Negative Endocrine Disorders, Diabetes Mellitus Type 1 or Diabetes Mellitus Type 2 (PREDIABETES- NO MEDS) HEMATOLOGIC: Negative Blood Disorders PSYCHO/SOCIAL: Positive Depression and Anxiety OTHER HISTORY: Negative Autoimmune Disease, Falls, Blood Transfusions, Blood Transfusion Reaction, Anesthesia Reactions, MRSA, Chicken Pox, Measles, Mumps, Clostridium Difficile, Cancer or Breast Cancer Family History FAMILY HISTORY: Negative Family Cardiac Disorders Surgical History SURGICAL: Negative Cardiac Surgery, Endocrine Surgery, Ear Surgery, Abdominal Surgery, Nephrectomy, Joint Replacement, Neurologic Surgery or Mastectomy Social History SMOKING STATUS: Never smoker SECOND HAND EXPOSURE: No ED Exam Narrative Physical exam: [General: Not in any acute distress Head normocephalic HEENT: Within acceptable limits Neck is supple nontender Chest equal chest rise nontender to palpation Respiratory: Clear to auscultation no wheezes crackles or rubs CV: Rate rhythm is regular no murmurs rubs or clicks Abdomen is soft nontender in all 4 quadrants, no masses positive bowel sounds all 4 quadrants Back: No CVA tenderness no spinous process tenderness from cervical spine thoracic and lumbar spine Skin: Intact no petechiae rash induration ulceration or crepitus Extremities: Moving all extremity against resistance cap refill less than 2 seconds neurosensory intact Neuro: Awake alert oriented x3 Glascow coma 15 no focal deficits] Course Quality Measures none Orders Category Date Time Status EKG (ED ONLY) *Do not use* NOW Care 06/08/25 09:[address] abdomen pelvis wo con Stat Exams 06/08/25 09:27 Completed EKG (ED Only) Stat Exams 06/08/25 09:27 Draft CBC Stat Lab 06/08/25 09:59 Completed Comprehensive Metabolic Panel Stat Lab 06/08/25 09:59 Completed Lipase Stat Lab 06/08/25 09:59 Completed Troponin I Stat Lab 06/08/25 09:59 Completed UA, C/S IF [Urinalysis, C/S if Indicated] Stat Lab 06/08/25 10:00 Completed Vital Signs Vital signs: Vital Signs Temperature 98.1 F 06/08/25 09:22 Pulse Rate 73 06/08/25 09:22 Respiratory Rate 16 06/08/25 09:22 Blood Pressure 143/90 H 06/08/25 09:22 Pulse Oximetry (%) 98 06/08/25 09:22 Oxygen Delivery Method Room Air 06/08/25 09:22 Discharge Plan Plan Patient Disposition: HOME (Self Care) Patient condition on transfer: Stable Prescriptions/Referrals Prescriptions/Med Rec: No Action atorvastatin 40 mg tablet 40 mg PO QHS 90 Days Qty: 90 0RF sertraline 50 mg tablet 50 mg PO QDAY Qty: 90 0RF Rx Instructions: Directions in [place] fenofibrate 54 mg tablet 54 mg PO QDAY Qty: 90 0RF Referrals: Gam[facility] WAFER POLISHING WORKER,Bette Lay WAFER POLISHING WORKER [Primary Care Provider, Family Practice] - In 1 week Problem List Clinical Impression: Abdominal bloating Patient/Caregiver Discharge Instructions Other Activity Instructions:: Continue with your omeprazole, follow-up with your GI specialist on June 15 as stated. Of this or worsening of symptoms in spite of the medications return the emergency room meetly for further evaluation. Education Materials: Low-Fiber Diet Print Language: [place] Stand Alone Forms: Gricelda Award Info., Work/School Release, Patient Portal Info Letter PA/RN NEW GRADUATE Supervising Physician PA/RN NEW GRADUATE Supervising Physician: Ramses Cha [facility] Clinical Information Provided by: patient Medical Records reviewed [facility] Meds/Rx considered, not ordered None Labs/Rad/Tests considered, not ordered None Chronic Illness/Social Conditions which may negatively complicate care or outcome(s)-explain: None or not applicable EKG Interpretation EKG #1: EKG Interpretation: EKG performed at 929 shows a ventricular rate of 77 OK interval 152 QRS of 96 QTc of 423 this normal sinus rhythm. Labs Labs: interpreted by [facility] Lab(s) Interpretation(s): CBC shows no acute leukocytosis anemia thrombocytopenia CMP shows no significant electrolyte imbalances renal impairment transaminitis or T. bili elevation Urine is unremarkable for UTI Imaging Imaging interpretation: interpreted by [facility] Interpretation(s): Abdomen pelvis CT shows no acute finding requires emergent or immediate intervention.
== END 2025-06-08 13:39 | disposition home or self-care (01) ==
PROVIDERS: Nurse Practitioner Primary Care; Emergency Provider Emergency Medicine; PCP Nurse Practitioner Family
DX: R19.7 Diarrhea, unspecified (principal)
CPT/HCPCS: 36415; 74176; 80053; 81001; 83690; 84484; 85025; 93005; 99283